=== PATIENT | female | born 1955 | race Caucasian/White ===

== ENCOUNTER 2017-03-02 10:44 | Inpatient (IN) | payer OTHER ==
[~2017-03-02] VITALS: Ht 170.2 cm; Wt 56.7 kg
[2017-03-02] MEDS ORDERED: TYLENOL 325MG325 MG PO (17:34)
[2017-03-02 17:35] VITALS: BP 163/58; PULSE 80; TEMP 97.4
[2017-03-02] MEDS ORDERED: CORDARONE200 MG/TAB PO (17:35)
[2017-03-02] MEDS ORDERED: AMOXICILLIN 8751 TAB PO (17:36)
[2017-03-02] MEDS ORDERED: SANTYL30 TP (17:38)
[2017-03-02] MEDS ORDERED: FOLIC ACID 11 MG/TA1 PO (17:39)
[2017-03-02] MEDS ORDERED: LOPRESSOR 550 MG/TAB PO (17:39)
[2017-03-02] MEDS ORDERED: NATURE'S BLEND100 M2 PO (17:40)
[2017-03-02] MEDS ORDERED: ULTRAM 50MG TAB50 MG PO (17:41)
[2017-03-02] MEDS ORDERED: EFFEXOR-XR150 MG PO (17:48)
[2017-03-02] MEDS ORDERED: VITAMIN B PO (17:51)
[2017-03-02] MEDS ORDERED: [UNRECOGNIZED DRUG - OTHER] PO (17:51)
[2017-03-03 06:03] VITALS: BP 158/60; PULSE 70; TEMP 99.5
[2017-03-03 06:50] LABS: MEAN CELL VOLUME 95 fl (80.0-100.0); MEAN CORPUSCULAR HGB CONC 32 g/dl (33.0-37.0); MEAN PLATELET VOLUME 11.3 fl (7.4-10.4); PLATELET COUNT 412 K/mm3 (130-400); RED BLOOD COUNT 3.08 M/mm3 (4.10-5.30)
[2017-03-03 06:52] LABS: HEMATOCRIT 29.2 % (37.0-47.0); HEMOGLOBIN 9.3 g/dl (12.5-16.0); MEAN CORPUSCULAR HEMOGLOBIN 30 pg (27.0-31.0)
[2017-03-03 06:53] LABS: ADD PATHOLOGY DIFF REVIEW NO
[2017-03-03 08:13] LABS: BAND 18 % (0-10); BASOPHIL 1 % (0-2); EOSINOPHIL 2 % (0-4); LYMPHOCYTE 11 % (20.0-51.0); METAMYELOCYTE 1 % (0-0); NEUTROPHILS 65 % (42.0-75.2); PLATELET ESTIMATE NORMAL (NORMAL); TOTAL CELLS COUNTED 100
[2017-03-03 17:48] VITALS: BP 148/65; PULSE 91; TEMP 98.4
[2017-03-04 06:26] VITALS: BP 154/59; PULSE 66; TEMP 97.1
[2017-03-04 15:55] VITALS: BP 156/58; PULSE 87; TEMP 97.4
[2017-03-05 06:01] VITALS: BP 158/54; PULSE 81; TEMP 98.7
[2017-03-05 08:10] LABS: MEAN CELL VOLUME 96 fl (80.0-100.0); MEAN CORPUSCULAR HGB CONC 31 g/dl (33.0-37.0); MEAN PLATELET VOLUME 10.6 fl (7.4-10.4); RED BLOOD COUNT 3.18 M/mm3 (4.10-5.30); WHITE BLOOD COUNT 12.4 K/mm3 (4.8-10.8)
[2017-03-05 08:12] LABS: HEMATOCRIT 30.5 % (37.0-47.0); HEMOGLOBIN 9.5 g/dl (12.5-16.0); MEAN CORPUSCULAR HEMOGLOBIN 30 pg (27.0-31.0)
[2017-03-05 08:14] LABS: PLATELET COUNT 517 K/mm3 (130-400)
[2017-03-05 08:15] LABS: ADD PATHOLOGY DIFF REVIEW NO
[2017-03-05 08:17] LABS: CALCIUM 7.2 mg/dL (8.4-10.2); CREATININE, serum 0.64 mg/dL (0.52-1.25)
[2017-03-05 08:20] LABS: POTASSIUM 2.8 mmol/L (3.4-5.0)
[2017-03-05 09:34] LABS: BAND 10 % (0-10); BASOPHIL 1 % (0-2); LYMPHOCYTE 17 % (20.0-51.0); METAMYELOCYTE 1 % (0-0); NEUTROPHILS 66 % (42.0-75.2); PLATELET ESTIMATE INCREASED (NORMAL); TOTAL CELLS COUNTED 100
[2017-03-05 09:35] LABS: ANISOCYTOSIS 1+; HYPOCHROMIA 2+
[2017-03-05 11:58] VITALS: BP 161/58
[2017-03-05 16:01] VITALS: BP 152/61; PULSE 81; TEMP 98.7
[2017-03-06 05:30] VITALS: BP 150/68; PULSE 72; TEMP 98.2
[2017-03-06 17:04] VITALS: BP 141/58; PULSE 79; TEMP 98.6
[2017-03-07 05:10] VITALS: BP 169/64; PULSE 72; TEMP 98.7
[2017-03-07 11:07] VITALS: BP 168/64; PULSE 78; TEMP 97.9
[2017-03-07 11:56] LABS: MEAN CELL VOLUME 98 fl (80.0-100.0); MEAN CORPUSCULAR HGB CONC 30 g/dl (33.0-37.0); MEAN PLATELET VOLUME 10.5 fl (7.4-10.4); WHITE BLOOD COUNT 14.3 K/mm3 (4.8-10.8)
[2017-03-07 12:01] LABS: ADD PATHOLOGY DIFF REVIEW NO; HEMATOCRIT 30.3 % (37.0-47.0); HEMOGLOBIN 9.2 g/dl (12.5-16.0); MEAN CORPUSCULAR HEMOGLOBIN 30 pg (27.0-31.0); PLATELET COUNT 682 K/mm3 (130-400)
[2017-03-07 13:26] LABS: BAND 6 % (0-10); BASOPHIL 2 % (0-2); LYMPHOCYTE 15 % (20.0-51.0); NEUTROPHILS 70 % (42.0-75.2); PLATELET ESTIMATE INCREASED (NORMAL); TOTAL CELLS COUNTED 100
[2017-03-07 13:29] LABS: ANISOCYTOSIS 2+; POLYCHROMASIA 1+
[2017-03-07 17:12] VITALS: BP 155/63; PULSE 80; TEMP 97.6
[2017-03-08 06:00] VITALS: BP 116/63; PULSE 65; TEMP 98.2
[2017-03-08 06:08] LABS: MEAN CELL VOLUME 99 fl (80.0-100.0); MEAN CORPUSCULAR HGB CONC 30 g/dl (33.0-37.0); MEAN PLATELET VOLUME 10.5 fl (7.4-10.4); PLATELET COUNT 619 K/mm3 (130-400); RED BLOOD COUNT 2.68 M/mm3 (4.10-5.30); WHITE BLOOD COUNT 12.8 K/mm3 (4.8-10.8)
[2017-03-08 06:17] LABS: HEMATOCRIT 26.4 % (37.0-47.0); MEAN CORPUSCULAR HEMOGLOBIN 30 pg (27.0-31.0)
[2017-03-08 06:18] LABS: ADD PATHOLOGY DIFF REVIEW NO
[2017-03-08 06:23] LABS: CALCIUM 7.5 mg/dL (8.4-10.2); CREATININE, serum 0.74 mg/dL (0.52-1.25)
[2017-03-08 07:13] LABS: BAND 7 % (0-10); BASOPHIL 2 % (0-2); LYMPHOCYTE 12 % (20.0-51.0); METAMYELOCYTE 1 % (0-0); NEUTROPHILS 76 % (42.0-75.2); TOTAL CELLS COUNTED 100
[2017-03-08 07:14] LABS: ANISOCYTOSIS 1+; PLATELET ESTIMATE INCREASED (NORMAL)
[2017-03-08 07:15] LABS: TOXIC GRANULATION PRESENT
[2017-03-08 10:07] VITALS: BP 124/61; PULSE 73
[2017-03-08 17:07] VITALS: BP 149/60; PULSE 79; TEMP 97.4
[2017-03-09 05:33] VITALS: BP 162/65; PULSE 76; TEMP 98
[2017-03-09 06:40] LABS: MEAN CELL VOLUME 100 fl (80.0-100.0); MEAN CORPUSCULAR HGB CONC 30 g/dl (33.0-37.0); PLATELET COUNT 674 K/mm3 (130-400); RED BLOOD COUNT 3.12 M/mm3 (4.10-5.30); WHITE BLOOD COUNT 15.2 K/mm3 (4.8-10.8)
[2017-03-09 06:41] LABS: ADD PATHOLOGY DIFF REVIEW NO; HEMATOCRIT 31.2 % (37.0-47.0); HEMOGLOBIN 9.3 g/dl (12.5-16.0); MEAN CORPUSCULAR HEMOGLOBIN 30 pg (27.0-31.0)
[2017-03-09 07:08] LABS: CALCIUM 7.5 mg/dL (8.4-10.2); CREATININE, serum 0.71 mg/dL (0.52-1.25); POTASSIUM 3.6 mmol/L (3.4-5.0)
[2017-03-09 07:20] LABS: ANISOCYTOSIS 1+; BAND 4 % (0-10); EOSINOPHIL 1 % (0-4); LYMPHOCYTE 7 % (20.0-51.0); NEUTROPHILS 83 % (42.0-75.2); PLATELET ESTIMATE INCREASED (NORMAL); TOTAL CELLS COUNTED 100
[2017-03-09 07:23] LABS: HYPOCHROMIA 3+
[2017-03-09 16:37] VITALS: BP 138/52; PULSE 78; TEMP 97.8
[2017-03-10 04:01] VITALS: BP 147/57; PULSE 82; TEMP 98.5
[2017-03-10 16:38] VITALS: BP 161/66; PULSE 82; TEMP 98.2
[2017-03-11 02:59] VITALS: BP 132/62; PULSE 79; TEMP 99.2
[2017-03-11 17:21] VITALS: BP 150/81; PULSE 94; TEMP 98.4
[2017-03-12 03:30] VITALS: BP 153/63; PULSE 80; TEMP 96.9
[2017-03-12 04:10] LABS: ADD PATHOLOGY DIFF REVIEW NO
[2017-03-12 04:12] LABS: MEAN CELL VOLUME 99 fl (80.0-100.0); MEAN CORPUSCULAR HGB CONC 30 g/dl (33.0-37.0); MEAN PLATELET VOLUME 9.6 fl (7.4-10.4); RED BLOOD COUNT 2.82 M/mm3 (4.10-5.30); WHITE BLOOD COUNT 15.7 K/mm3 (4.8-10.8)
[2017-03-12 04:22] LABS: BAND 3 % (0-10); BASOPHIL 2 % (0-2); HYPOCHROMIA 1+; LYMPHOCYTE 20 % (20.0-51.0); NEUTROPHILS 70 % (42.0-75.2); POLYCHROMASIA 1+; TOTAL CELLS COUNTED 100; TOXIC GRANULATION PRESENT
[2017-03-12 04:23] LABS: ANISOCYTOSIS 1+; MICROCYTOSIS 1+; POIKILOCYTOSIS 1+; ROULEAUX 2+
[2017-03-12 04:27] LABS: CALCIUM 7.6 mg/dL (8.4-10.2); CREATININE, serum 0.66 mg/dL (0.52-1.25); POTASSIUM 3.1 mmol/L (3.4-5.0)
[2017-03-12 04:46] LABS: HEMATOCRIT 27.9 % (37.0-47.0); HEMOGLOBIN 8.4 g/dl (12.5-16.0); MEAN CORPUSCULAR HEMOGLOBIN 30 pg (27.0-31.0)
[2017-03-12 04:47] LABS: PLATELET COUNT 539 K/mm3 (130-400)
[2017-03-12] MEDS ORDERED: VENLAFAXINE225 MG PO (11:10)
[2017-03-12] MEDS ORDERED: DESYREL 50MG50 MG PO (11:11)
[2017-03-12 11:17] VITALS: BP 153/63; PULSE 80; TEMP 96.9
== END 2017-03-12 12:15 | DRG 91 ==
PROVIDERS: Family Medicine; Internal Medicine; Nurse Practitioner Family
PROC: 0HD7XZZ Extraction of Abdomen Skin, External Approach (ICD-10-PCS; principal; 2017-03-04)
DX: G72.81 Critical illness myopathy (principal); A41.9 Sepsis, unspecified organism; R65.20 Severe sepsis without septic shock; J96.01 Acute respiratory failure with hypoxia; J96.02 Acute respiratory failure with hypercapnia; E43 Unspecified severe protein-calorie malnutrition; J18.9 Pneumonia, unspecified organism; F10.239 Alcohol dependence with withdrawal, unspecified; J80 Acute respiratory distress syndrome; F33.1 Major depressive disorder, recurrent, moderate; Z87.891 Personal history of nicotine dependence; B96.4 Proteus (mirabilis) (morganii) as the cause of diseases classified elsewhere; B96.6 Bacteroides fragilis [B. fragilis] as the cause of diseases classified elsewhere; B96.20 Unspecified Escherichia coli [E. coli] as the cause of diseases classified elsewhere; L89.152 Pressure ulcer of sacral region, stage 2; Z93.3 Colostomy status
CPT/HCPCS: 99222-AI; 99232-AI; 99233-AI; 99239; C1751; J0348; J1644; J1650; J1956; J2543; J7050; J7512

== ENCOUNTER 2017-03-12 12:03 | Inpatient (IN) | payer OTHER ==
[~2017-03-12] VITALS: Ht 170.2 cm; Wt 53.7 kg
[2017-03-12] VITALS (329 sets, daily range): BP systolic 134–170; BP diastolic 58–74; PULSE 77–90; TEMP 97.9–98.9; O2SAT 78–100
[~2017-03-12 12:03] MED LIST: AMOXICILLIN 8751 TAB PO; CORDARONE200 MG/TAB PO; DESYREL 50MG50 MG PO; EFFEXOR-XR150 MG PO; FOLIC ACID 11 MG/TA1 PO; LOPRESSOR 550 MG/TAB PO; NATURE'S BLEND100 M2 PO; SANTYL30 TP; TYLENOL 325MG325 MG PO; ULTRAM 50MG TAB50 MG PO; VENLAFAXINE225 MG PO; VITAMIN B PO; [UNRECOGNIZED DRUG - OTHER] PO
[2017-03-12 14:14] LABS: PLEURAL FLUID RIGHT SIDE; PLEURAL FLUID - PMN 17.8 % (0-25); PLEURAL FLUID COLOR COLORLESS; PLEURAL FLUID WBC 45 /mm3
[2017-03-12 14:15] LABS: PLEURAL FLUID APPEARANCE CLEAR
[2017-03-12 14:34] LABS: GLUCOSE,PLEURAL FLUID 76 mg/dL
[2017-03-13] VITALS (509 sets, daily range): BP systolic 126–156; BP diastolic 58–81; PULSE 73–88; TEMP 97–98.9; O2SAT 71–100
[2017-03-13 04:27] LABS: ALLEN TEST YES; ALLENS TEST RESULT PASS; ARTERIAL BLD GAS O2 SATURATION 90.5 % (92-100); ARTERIAL BLD GAS TCO2 CT 20.5; ARTERIAL BLOOD GAS BASE EXCESS -5.1 (-2-2); ARTERIAL BLOOD GAS HCO3 19.5 meq/L (22-26); ARTERIAL BLOOD GAS PHT 7.37 C (7.35-7.45); ARTERIAL BLOOD GAS PO2 66.9 mmHg (80-100); ARTERIAL BLOOD GAS PO2T 66.9 (80-100); ARTERIAL BLOOD GAS pH 7.37 (7.35-7.45); ATS? YES; OXYHEMOGLOBIN 89.6 %
[2017-03-13 05:34] LABS: MEAN CELL VOLUME 98 fl (80.0-100.0); MEAN CORPUSCULAR HGB CONC 31 g/dl (33.0-37.0); PLATELET COUNT 546 K/mm3 (130-400); RED BLOOD COUNT 3.42 M/mm3 (4.10-5.30); WHITE BLOOD COUNT 12.9 K/mm3 (4.8-10.8)
[2017-03-13 05:35] LABS: HEMATOCRIT 33.4 % (37.0-47.0); HEMOGLOBIN 10.2 g/dl (12.5-16.0); MEAN CORPUSCULAR HEMOGLOBIN 30 pg (27.0-31.0)
[2017-03-13 05:36] LABS: ADD PATHOLOGY DIFF REVIEW NO
[2017-03-13 05:43] LABS: ADJUSTED CALCIUM 9.2 mg/dL (8.4-10.2); ALBUMIN 2.2 gm/dL (3.5-5.0); BILIRUBIN,TOTAL 0.4 mg/dL (0.0-1.0); CALCIUM 7.8 mg/dL (8.4-10.2); CREATININE, serum 0.73 mg/dL (0.52-1.25); MAGNESIUM 1.9 mg/dL (1.6-2.3); PHOSPHOROUS 3.9 mg/dL (2.5-4.5); POTASSIUM 4.2 mmol/L (3.4-5.0); TOTAL PROTEIN 5.7 gm/dL (6.4-8.2)
[2017-03-13 05:48] LABS: ANISOCYTOSIS 2+; BAND 6 % (0-10); LYMPHOCYTE 10 % (20.0-51.0); METAMYELOCYTE 3 % (0-0); NEUTROPHILS 79 % (42.0-75.2); POLYCHROMASIA 2+; TOTAL CELLS COUNTED 100
[2017-03-13 05:49] LABS: BURR CELLS 1+; HYPOCHROMIA 1+; MICROCYTOSIS 1+
[2017-03-13 14:17] LABS: INFLUENZA A NEGATIVE; INFLUENZA B NEGATIVE
[2017-03-14 01:16] VITALS: BP 120/46; PULSE 69; TEMP 97.4
[2017-03-14 06:06] VITALS: BP 148/62; PULSE 75; TEMP 98.8
[2017-03-14 09:11] VITALS: BP 122/74; PULSE 99; TEMP 98.5
[2017-03-14 13:59] VITALS: BP 144/61; PULSE 80; TEMP 98.3
[2017-03-14 17:33] VITALS: BP 147/62; PULSE 90; TEMP 98.6
[2017-03-14 21:56] VITALS: BP 155/77; PULSE 81; TEMP 97.4
[2017-03-15] VITALS (503 sets, daily range): BP systolic 150–157; BP diastolic 54–78; PULSE 72–83; TEMP 97.6–98.3; O2SAT 73–100
[2017-03-15 06:52] LABS: ADD PATHOLOGY DIFF REVIEW NO
[2017-03-15 07:08] LABS: CALCIUM 7.3 mg/dL (8.4-10.2); CREATININE, serum 0.75 mg/dL (0.52-1.25); MAGNESIUM 1.8 mg/dL (1.6-2.3)
[2017-03-15 07:13] LABS: POTASSIUM 2.6 mmol/L (3.4-5.0)
[2017-03-15 07:20] LABS: HEMATOCRIT 28.3 % (37.0-47.0); HEMOGLOBIN 8.8 g/dl (12.5-16.0); MEAN CELL VOLUME 99 fl (80.0-100.0); MEAN CORPUSCULAR HEMOGLOBIN 31 pg (27.0-31.0); MEAN CORPUSCULAR HGB CONC 31 g/dl (33.0-37.0); MEAN PLATELET VOLUME 10.1 fl (7.4-10.4); PLATELET COUNT 365 K/mm3 (130-400); RED BLOOD COUNT 2.87 M/mm3 (4.10-5.30); WHITE BLOOD COUNT 18.3 K/mm3 (4.8-10.8)
[2017-03-15 08:36] LABS: BAND 8 % (0-10); LYMPHOCYTE 14 % (20.0-51.0); METAMYELOCYTE 2 % (0-0); NEUTROPHILS 75 % (42.0-75.2); TOTAL CELLS COUNTED 100
[2017-03-15 08:37] LABS: ANISOCYTOSIS 2+; PLATELET ESTIMATE NORMAL (NORMAL)
[2017-03-15 12:22] LABS: ARTERIAL BLD GAS O2 SATURATION 88.4 % (92-100); ARTERIAL BLD GAS TCO2 CT 25.4; ARTERIAL BLOOD GAS BASE EXCESS 0.3 (-2-2); ARTERIAL BLOOD GAS HCO3 24.3 meq/L (22-26); ARTERIAL BLOOD GAS PO2 56.2 mmHg (80-100); ARTERIAL BLOOD GAS pH 7.44 (7.35-7.45); OXYHEMOGLOBIN 87.7 %
[2017-03-15 12:23] LABS: ALLEN TEST YES; ALLENS TEST RESULT PASS; ATS? YES
[2017-03-16] VITALS (1184 sets, daily range): BP systolic 142–158; BP diastolic 65–81; PULSE 77–89; TEMP 97.2–98.1; O2SAT 60–100
[2017-03-16 05:43] LABS: HEMATOCRIT 31.5 % (37.0-47.0); HEMOGLOBIN 9.6 g/dl (12.5-16.0); MEAN CELL VOLUME 99 fl (80.0-100.0); MEAN CORPUSCULAR HEMOGLOBIN 30 pg (27.0-31.0); MEAN CORPUSCULAR HGB CONC 31 g/dl (33.0-37.0); MEAN PLATELET VOLUME 9.8 fl (7.4-10.4); PLATELET COUNT 328 K/mm3 (130-400); RED BLOOD COUNT 3.18 M/mm3 (4.10-5.30)
[2017-03-16 05:44] LABS: ADD PATHOLOGY DIFF REVIEW NO
[2017-03-16 05:51] LABS: CALCIUM 7.5 mg/dL (8.4-10.2); CREATININE, serum 0.74 mg/dL (0.52-1.25); MAGNESIUM 1.9 mg/dL (1.6-2.3); POTASSIUM 4.2 mmol/L (3.4-5.0)
[2017-03-16 05:59] LABS: LYMPHOCYTE 10 % (20.0-51.0); NEUTROPHILS 86 % (42.0-75.2); POLYCHROMASIA 1+; TOTAL CELLS COUNTED 100
[2017-03-16 06:00] LABS: ANISOCYTOSIS 3+; MICROCYTOSIS 2+; TARGET CELLS 1+
[2017-03-17] VITALS (1107 sets, daily range): BP systolic 127–148; BP diastolic 60–89; PULSE 73–81; TEMP 96.8–98; O2SAT 56–100
[2017-03-17 05:36] LABS: MEAN CELL VOLUME 100 fl (80.0-100.0); MEAN CORPUSCULAR HGB CONC 30 g/dl (33.0-37.0); PLATELET COUNT 287 K/mm3 (130-400); RED BLOOD COUNT 3.13 M/mm3 (4.10-5.30); WHITE BLOOD COUNT 15.9 K/mm3 (4.8-10.8)
[2017-03-17 05:39] LABS: ADD PATHOLOGY DIFF REVIEW NO; HEMATOCRIT 31.2 % (37.0-47.0); HEMOGLOBIN 9.5 g/dl (12.5-16.0); MEAN CORPUSCULAR HEMOGLOBIN 30 pg (27.0-31.0)
[2017-03-17 05:43] LABS: CALCIUM 7.5 mg/dL (8.4-10.2); CREATININE, serum 0.8 mg/dL (0.52-1.25); MAGNESIUM 2.1 mg/dL (1.6-2.3); POTASSIUM 4.1 mmol/L (3.4-5.0)
[2017-03-17 05:59] LABS: ANISOCYTOSIS 2+; BAND 5 % (0-10); LYMPHOCYTE 16 % (20.0-51.0); METAMYELOCYTE 1 % (0-0); NEUTROPHILS 76 % (42.0-75.2); POLYCHROMASIA 2+; TOTAL CELLS COUNTED 100
[2017-03-17 06:00] LABS: HYPOCHROMIA 1+; MICROCYTOSIS 1+
[2017-03-18] VITALS (587 sets, daily range): BP systolic 134–150; BP diastolic 64–91; PULSE 75–86; TEMP 97.4–98.6; O2SAT 69–100
[2017-03-19] VITALS (823 sets, daily range): BP systolic 126–148; BP diastolic 57–85; PULSE 66–82; TEMP 97.5–99.2; O2SAT 59–100
[2017-03-19 09:23] LABS: ARTERIAL BLD GAS O2 SATURATION 96.4 % (92-100); ARTERIAL BLD GAS TCO2 CT 16.6; ARTERIAL BLOOD GAS BASE EXCESS -9.5 (-2-2); ARTERIAL BLOOD GAS HCO3 15.7 meq/L (22-26); ARTERIAL BLOOD GAS PHT 7.32 C (7.35-7.45); ARTERIAL BLOOD GAS PO2 106.9 mmHg (80-100); ARTERIAL BLOOD GAS PO2T 106.9 (80-100); ARTERIAL BLOOD GAS pH 7.32 (7.35-7.45); OXYHEMOGLOBIN 95.5 %
[2017-03-19 13:32] LABS: ABG VENTILATOR TIDAL VOLUME 350 mL
[2017-03-19 18:51] LABS: INR 1.1 (0.8-3.0); PROTHROMBIN TIME 12.9 SECONDS (9.7-12.8)
[2017-03-19 18:54] LABS: PARTIAL THROMBOPLASTIN TIME 29.5 SECONDS (26.0-37.0)
[2017-03-20] VITALS (632 sets, daily range): BP systolic 132–151; BP diastolic 57–70; PULSE 60–70; TEMP 98–99.8; O2SAT 88–100
[2017-03-20 04:10] LABS: MEAN CELL VOLUME 100 fl (80.0-100.0); MEAN CORPUSCULAR HGB CONC 31 g/dl (33.0-37.0); MEAN PLATELET VOLUME 10.7 fl (7.4-10.4); PLATELET COUNT 187 K/mm3 (130-400); RED BLOOD COUNT 3.01 M/mm3 (4.10-5.30); WHITE BLOOD COUNT 15.8 K/mm3 (4.8-10.8)
[2017-03-20 04:12] LABS: HEMOGLOBIN 9.4 g/dl (12.5-16.0); MEAN CORPUSCULAR HEMOGLOBIN 31 pg (27.0-31.0)
[2017-03-20 04:13] LABS: ADD PATHOLOGY DIFF REVIEW NO
[2017-03-20 04:21] LABS: ARTERIAL BLD GAS O2 SATURATION 97.7 % (92-100); ARTERIAL BLD GAS TCO2 CT 27.4; ARTERIAL BLOOD GAS BASE EXCESS 1.2 (-2-2); ARTERIAL BLOOD GAS HCO3 26.1 meq/L (22-26); ARTERIAL BLOOD GAS PO2 113.4 mmHg (80-100); OXYHEMOGLOBIN 96.6 %
[2017-03-20 04:24] LABS: ABG VENTILATOR TIDAL VOLUME 360 mL; ALLEN TEST NO; ATS? NO
[2017-03-20 04:24] LABS: ADJUSTED CALCIUM 8.6 mg/dL (8.4-10.2); ALBUMIN 2.3 gm/dL (3.5-5.0); BILIRUBIN,TOTAL 0.7 mg/dL (0.0-1.0); CALCIUM 7.2 mg/dL (8.4-10.2); CREATININE, serum 0.79 mg/dL (0.52-1.25); MAGNESIUM 1.9 mg/dL (1.6-2.3); PHOSPHOROUS 2.9 mg/dL (2.5-4.5); POTASSIUM 3.5 mmol/L (3.4-5.0); TOTAL PROTEIN 5.3 gm/dL (6.4-8.2)
[2017-03-20 04:36] LABS: TROPONIN-I 0.074 ng/mL (0.000-0.034)
[2017-03-20 04:48] LABS: ANISOCYTOSIS 2+; LYMPHOCYTE 8 % (20.0-51.0); NEUTROPHILS 89 % (42.0-75.2); NUCLEATED RED BLOOD CELL 1 (0-6); POLYCHROMASIA 2+; ROULEAUX 1+; TOTAL CELLS COUNTED 100
[2017-03-20 04:49] LABS: HYPOCHROMIA 1+; MICROCYTOSIS 1+; POIKILOCYTOSIS 1+; SCHISTOCYTES 1+
== END 2017-03-20 11:03 | disposition short-term general hospital (02) | DRG 208 ==
LOC: ICU 12:03 → SURG 12:03 → ICU 15:40 → SURG 03-13 12:45 → ICU 03-15 13:58 → SURG 03-18 15:45 → ICU 03-19 07:40
PROVIDERS: Internal Medicine; Internal Medicine Interventional Cardiology; Internal Medicine Pulmonary Disease; Physician Assistant
PROC: 0W993ZX Drainage of Right Pleural Cavity, Percutaneous Approach, Diagnostic (ICD-10-PCS; principal; 2017-03-12)
PROC: 02HV33Z Insertion of Infusion Device into Superior Vena Cava, Percutaneous Approach (ICD-10-PCS; 2017-03-18)
PROC: 5A1935Z Respiratory Ventilation, Less than 24 Consecutive Hours (ICD-10-PCS; 2017-03-19)
PROC: 0BH17EZ Insertion of Endotracheal Airway into Trachea, Via Natural or Artificial Opening (ICD-10-PCS; 2017-03-19)
DX: J96.01 Acute respiratory failure with hypoxia (principal); E43 Unspecified severe protein-calorie malnutrition; I21.A1 Myocardial infarction type 2; J90 Pleural effusion, not elsewhere classified; E87.1 Hypo-osmolality and hyponatremia; I10 Essential (primary) hypertension; E87.6 Hypokalemia; J80 Acute respiratory distress syndrome; D64.9 Anemia, unspecified; F32.9 Major depressive disorder, single episode, unspecified; J44.9 Chronic obstructive pulmonary disease, unspecified; F10.10 Alcohol abuse, uncomplicated; L89.152 Pressure ulcer of sacral region, stage 2; F17.210 Nicotine dependence, cigarettes, uncomplicated
CPT/HCPCS: 99223-AI; 99232-AI; 99233-AI; A4217; A9284; J0348; J0610; J1644; J1650; J1815; J1940; J1956; J2405; J2543; J2704; J2930; J3010; J3411; J3475; J3480; J7050; J7060; J7131; J7512; Q9967

== ENCOUNTER → 2017-05-06 | Outpatient (CLI) | payer OTHER ==
[2017-05-06 05:56] LABS: CALCIUM 7.9 mg/dL (8.4-10.2); CREATININE, serum 0.81 mg/dL (0.52-1.25); POTASSIUM 4.8 mmol/L (3.4-5.0)
== END ==
LOC: ZCOL.LAB 05:34
PROVIDERS: Physician Assistant
DX: R79.89 Other specified abnormal findings of blood chemistry (principal)